=== PATIENT | male | born 1990 | race Caucasian/White ===

== ENCOUNTER 2023-06-10 19:05 | Emergency (ER) | payer OTHER, BC ==
[~2023-06-10] VITALS: Ht 165.1 cm; Wt 116.0 kg
[2023-06-10 19:09] VITALS: BP 122/70; PULSE 156; RESP 18; TEMP 98.3; O2SAT 93
[2023-06-10] MEDS ORDERED: TETANUS, DIPHTHERIA, PERTUSSIS VAC/PF 0.5ML (>10YR OLD) IM ONE (19:30)
[2023-06-10] MEDS ORDERED: SODIUM CHLORIDE 0.9% 1,000 ML IV ONE (19:30)
[2023-06-10] MEDS ORDERED: HALOPERIDOL LACTATE 5MG/ML VIAL IM ONE (19:30)
[2023-06-10] MEDS ORDERED: MIDAZOLAM HCL 2 MG/2 ML VIAL IM ONE (19:30)
[2023-06-10] MEDS ORDERED: DIPHENHYDRAMINE 50MG/ML VIAL IM ONE (19:30)
[2023-06-10 21:10] LABS: BASOPHILS % 0.3 % (0.0-2.0); EOSINOPHILS % 0.9 % (0.0-5.0); HEMOGLOBIN. 15.1 g/dL (14.0-18.0); LYMPHOCYTES % 13.3 % (20.0-50.0); MEAN CORPUSCULAR HEMOGLOBIN 31.9 pg (28.0-32.0); MEAN CORPUSCULAR HGB CONC 32.9 g/dL (31.0-37.0); NEUTROPHILS % 77.5 % (40.0-76.0); RED BLOOD CELL COUNT 4.75 mill/uL (4.7-6.1); RED CELL DISTRIBUTION WIDTH 14.8 % (11.6-14.6); WHITE BLOOD COUNT 16.1 x1000/uL (4.5-11.0)
[2023-06-10 21:14] LABS: DIFFERENTIAL COMMENT 1
[2023-06-10 21:21] LABS: ALANINE AMINOTRANSFERASE 184 IU/L (10-49); ALBUMIN 4.6 g/dL (3.2-4.8); ASPARTATE AMINOTRANSFERASE 99 IU/L (<34); BILIRUBIN TOTAL 0.3 mg/dL (0.1-1.0); CALCIUM 9.7 mg/dL (8.7-10.4); CARBON DIOXIDE 20 mEq/L (21-32); CHLORIDE 108 mEq/L (98-107); CREATINE KINASE 935 IU/L (46-171); CREATININE 1.1 mg/dL (0.6-1.3); ETHANOL BLOOD 228 mg/dL (<10); GLUCOSE 129 mg/dL (70-105); PROTEIN TOTAL 8.3 g/dL (6.0-8.3); SODIUM 140 mEq/L (136-145); TROPONIN I HIGH SENSITIVITY 9 ng/L (3.0-53); UREA NITROGEN BLOOD 8 mg/dL (9-23)
[2023-06-10 21:48] LABS: MEAN PLATELET VOLUME 9.9 fl (7.4-10.4); PLATELET 227 x1000/uL (130-400)
[2023-06-10] MEDS ORDERED: IBUP-2028 MT (22:27)
== END 2023-06-11 00:41 | disposition home or self-care (01) ==
LOC: ER 19:05
DX: S80.811A Abrasion, right lower leg, initial encounter (principal); S80.812A Abrasion, left lower leg, initial encounter; S00.91XA Abrasion of unspecified part of head, initial encounter; F10.129 Alcohol abuse with intoxication, unspecified; R00.0 Tachycardia, unspecified; Z90.49 Acquired absence of other specified parts of digestive tract; V98.8XXA Other specified transport accidents, initial encounter; Y93.89 Activity, other specified; Y92.89 Other specified places as the place of occurrence of the external cause; Y99.8 Other external cause status; Y90.7 Blood alcohol level of 200-239 mg/100 ml
CPT/HCPCS: 80053; 80320; 82550; 83690; 85025; 84484; 36415; 71045; 73090; 73560; 73590; 70450; 72125; 90715; 93005; 90471; 96360; 99285; J1200; J1630; J2250; J7030; G0480

== ENCOUNTER 2023-08-17 13:23 | Emergency (ER) | payer BC, OTHER ==
[~2023-08-17] VITALS: Ht 180.3 cm; Wt 113.0 kg
[~2023-08-17 13:23] MED LIST: IBUP-2028 MT
[2023-08-17 13:37] VITALS: O2SAT 99
[2023-08-17 14:59] LABS: BASOPHILS % 0.3 % (0.0-2.0); EOSINOPHILS % 5.3 % (0.0-5.0); HEMATOCRIT. 45.3 % (42.0-52.0); LYMPHOCYTES % 34.2 % (20.0-50.0); MEAN CORPUSCULAR HGB CONC 33.1 g/dL (31.0-37.0); MEAN CORPUSCULAR VOLUME 93.5 fL (80.0-94.0); MEAN PLATELET VOLUME 8.8 fl (7.4-10.4); MONOCYTES % 10.2 % (2.0-8.0); PLATELET 237 x1000/uL (130-400); RED BLOOD CELL COUNT 4.84 mill/uL (4.7-6.1); RED CELL DISTRIBUTION WIDTH 13.4 % (11.6-14.6)
[2023-08-17 15:11] LABS: ALANINE AMINOTRANSFERASE 112 IU/L (10-49); ALBUMIN 4.6 g/dL (3.2-4.8); ASPARTATE AMINOTRANSFERASE 43 IU/L (<34); BILIRUBIN TOTAL 0.3 mg/dL (0.1-1.0); CALCIUM 8.8 mg/dL (8.7-10.4); CARBON DIOXIDE 26 mEq/L (21-32); CHLORIDE 107 mEq/L (98-107); CREATININE 1.2 mg/dL (0.6-1.3); GLUCOSE 83 mg/dL (70-105); POTASSIUM 3.7 mEq/L (3.5-5.1); PROTEIN TOTAL 7.1 g/dL (6.0-8.3); SODIUM 138 mEq/L (136-145); UREA NITROGEN BLOOD 20 mg/dL (9-23)
[2023-08-17 15:18] LABS: ETHANOL BLOOD < 10 mg/dL (<10)
[2023-08-17] MEDS: SODIUM CHLORIDE 0.9% 1,000 ML IV ONE (15:24)
[2023-08-17] MEDS: ONDANSETRON HCL 4MG/2ML INJ IV STA (15:25)
[2023-08-17] MEDS ORDERED: ONDA4TAB50 MT (16:30)
[2023-08-17 16:56] VITALS: BP 138/71; PULSE 83; RESP 17; TEMP 97.9
== END 2023-08-17 16:58 | disposition home or self-care (01) ==
LOC: ER 13:23
DX: R42 Dizziness and giddiness (principal); R11.0 Nausea
CPT/HCPCS: 80053; 80320; 85025; 36415; 96361; 96374; 99283; J2405; J7030; Z7610 ×2; G0480

== ENCOUNTER 2024-09-27 02:38 | Emergency (ER) | payer MEDICAID, OTHER ==
[~2024-09-27] VITALS: Ht 180.3 cm; Wt 118.0 kg
[~2024-09-27 02:38] MED LIST changes: +ONDA4TAB50 MT
[2024-09-27 02:40] VITALS: BP 141/94; PULSE 116; RESP 18; TEMP 37.1; O2SAT 98
[2024-09-27] MEDS: TETANUS, DIPHTHERIA, PERTUSSIS VAC/PF 0.5ML (>10YR OLD) IM ONE (03:31)
[2024-09-27] MEDS: LIDOCAINE HCL 1% 20ML VIAL INFIL ONE (03:31)
== END 2024-09-27 05:35 ==
LOC: ER 03:05
DX: S01.81XA Laceration without foreign body of other part of head, initial encounter (principal); S09.90XA Unspecified injury of head, initial encounter; F10.129 Alcohol abuse with intoxication, unspecified; I10 Essential (primary) hypertension; Z98.890 Other specified postprocedural states; Z79.899 Other long term (current) drug therapy; X58.XXXA Exposure to other specified factors, initial encounter; Y93.89 Activity, other specified; Y92.89 Other specified places as the place of occurrence of the external cause; Y99.8 Other external cause status; Y90.9 Presence of alcohol in blood, level not specified
CPT/HCPCS: 70450; 90715; 12013; 90471; 99285; J3490; Z7610

== ENCOUNTER 2024-10-15 06:29 | Emergency (ER) | payer MEDICAID, OTHER ==
[~2024-10-15] VITALS: Ht 180.3 cm; Wt 113.0 kg
[2024-10-15 06:38] VITALS: O2SAT 99
[2024-10-15 06:53] VITALS: BP 148/76; PULSE 88; RESP 18; TEMP 36.9; O2SAT 99
== END 2024-10-15 06:55 | disposition home or self-care (01) ==
LOC: ER 06:41
DX: S01.81XD Laceration without foreign body of other part of head, subsequent encounter (principal); Z90.49 Acquired absence of other specified parts of digestive tract; I10 Essential (primary) hypertension; X58.XXXD Exposure to other specified factors, subsequent encounter
CPT/HCPCS: 99281